=== PATIENT | female | born 1975 | race Caucasian/White ===

== ENCOUNTER 2020-12-11 17:03 | Inpatient (IN) ==
[2020-12-11 18:14] LABS: Basophils % 0.2 %; Hemoglobin 13.2 g/dL (11.5-15.4); Immature Granulocytes % 0.9 % (0-4); Lymphocytes # 1.3 K/mcL (0.6-4.6); Lymphocytes % 9.6 %; Mean Corpuscular Hemoglobin 28.4 pg (28.0-33.3); Mean Platelet Volume 10.2 fL (9.4-12.4); Monocytes # 0.5 K/mcL (0.0-1.3); Monocytes % 3.8 %; Neutrophils # 11.1 K/mcL (1.6-8.9); Platelet Count 202 K/mcL (140-400); Red Blood Count 4.65 M/mcL (3.82-4.97); Red Cell Distribution Width 13.9 % (11.5-14.5); Segmented Neutrophils % 85.5 %
[2020-12-11 18:34] LABS: Alanine Aminotransferase 46 Units/L (7-52); Albumin 3.7 g/dL (3.5-5.7); Albumin/Globulin Ratio 1.1 (1.1-2.2); Alkaline Phosphatase 133 Units/L (34-104); Aspartate Amino Transferase 32 Units/L (13-39); BUN/Creatinine Ratio 20 (6-26); Bilirubin,Indirect 0.4 mg/dL (0.0-1.0); Bilirubin,Total 0.4 mg/dL (0.3-1.0); Blood Urea Nitrogen 26 mg/dL (6-20); Calcium 8.5 mg/dL (8.6-10.3); Carbon Dioxide 20 mEq/L (23-29); Chloride 99 mEq/L (98-107); Globulin 3.4 g/dL (2.4-3.5); Glucose 146 mg/dL (70-105); Magnesium 1.8 mg/dL (1.6-2.6); Osmolality,Calculated 283 (280-300); Potassium 3.9 mEq/L (3.5-5.1); Sodium 133 mEq/L (136-145); Total Protein 7.1 g/dL (6.4-8.9); Troponin I < 0.03 ng/mL (< 0.04); eGFR For African Americans 55 (> 60); eGFR For Non-African Americans 45 (> 60)
[2020-12-11] MEDS: 0.9 % Sodium Chloride 1,000 ML IVC SCH ×2 (18:38→20:30)
[2020-12-11] MEDS ORDERED: Ondansetron 4 MG/2 ML VIAL IVP PRN (21:37)
[2020-12-11] MEDS ORDERED: Naloxone 0.4 MG/ML INJ IVP PRN (21:37)
[2020-12-11] MEDS ORDERED: Acetaminophen 325 MG TABLET PO PRN (21:37)
[2020-12-11] MEDS ORDERED: Melatonin 3 MG TABLET PO PRN (21:37)
[2020-12-11] MEDS: Dexamethasone Sodium Phos/PF 10 MG/ML VIAL IVP SCH (21:45)
[2020-12-12] MEDS ORDERED: *HR* Enoxaparin 40 MG/0.4 ML SYRINGE SQ SCH ×2 (06:00→18:00)
[2020-12-12 07:49] LABS: Basophils % 0.2 %; Hematocrit 35.7 % (35.3-44.9); Hemoglobin 11.7 g/dL (11.5-15.4); Immature Granulocytes % 1.5 % (0-4); Lymphocytes # 1.4 K/mcL (0.6-4.6); Lymphocytes % 17.6 %; Mean Corpuscular HGB Conc 32.8 g/dL (31.6-35.5); Mean Corpuscular Hemoglobin 28.6 pg (28.0-33.3); Mean Corpuscular Volume 87.3 fL (83.0-100.0); Monocytes # 0.4 K/mcL (0.0-1.3); Monocytes % 4.5 %; Neutrophils # 6.2 K/mcL (1.6-8.9); Platelet Count 158 K/mcL (140-400); Red Blood Count 4.09 M/mcL (3.82-4.97); Red Cell Distribution Width 14.2 % (11.5-14.5); Segmented Neutrophils % 76.2 %; White Blood Count 8.2 K/mcL (4.3-11.1)
[2020-12-12 07:53] LABS: INR 1.2; Prothrombin Time 14.3 Seconds (9.4-12.1)
[2020-12-12 08:28] LABS: Alanine Aminotransferase 38 Units/L (7-52); Albumin 3.3 g/dL (3.5-5.7); Albumin/Globulin Ratio 1.1 (1.1-2.2); Alkaline Phosphatase 113 Units/L (34-104); Aspartate Amino Transferase 31 Units/L (13-39); BUN/Creatinine Ratio 21 (6-26); Bilirubin,Total 0.3 mg/dL (0.3-1.0); Blood Urea Nitrogen 23 mg/dL (6-20); Calcium 7.7 mg/dL (8.6-10.3); Carbon Dioxide 21 mEq/L (23-29); Chloride 105 mEq/L (98-107); Glucose 112 mg/dL (70-105); Lactate Dehydrogenase 259 Units/L (140-271); Osmolality,Calculated 282 (280-300); Phosphorous 2.7 mg/dL (2.7-4.5); Potassium 3.9 mEq/L (3.5-5.1); Sodium 134 mEq/L (136-145); Total Protein 6.3 g/dL (6.4-8.9); eGFR For African Americans > 60 (> 60); eGFR For Non-African Americans 56 (> 60)
[2020-12-12 08:35] LABS: Ferritin 154 ng/mL (10-120)
[2020-12-12] MEDS: Dexamethasone Sodium Phos/PF 10 MG/ML VIAL IVP SCH (08:39)
[2020-12-12 10:19] LABS: C-Reactive Protein 134 mg/L (Less than 10)
[2020-12-12] MEDS: Budesonide/Formoterol 160/4.5 1 PUFF INH IH SCH (19:52)
[2020-12-12] MEDS: *HR* Heparin 5,000 UNIT/ML VIAL SQ SCH (21:27)
[2020-12-12] MEDS: *HR* HYDROcodone/Acet 5/325 mg TABLET PO PRN (21:28)
[2020-12-12] MEDS: Pregabalin 75 MG CAPSULE PO SCH (21:28)
[2020-12-12] MEDS: Famotidine 20 MG TABLET PO SCH (21:28)
[2020-12-12] MEDS: tiZANidine 4 MG TABLET PO SCH (21:29)
[2020-12-12] MEDS: CEVIMELINE HCL 30 MG PO SCH (21:30)
[2020-12-13] MEDS: *HR* Heparin 5,000 UNIT/ML VIAL SQ SCH ×3 (05:43→20:36)
[2020-12-13 08:40] LABS: Basophils % 0.3 %; Hematocrit 38.6 % (35.3-44.9); Hemoglobin 12.7 g/dL (11.5-15.4); Immature Granulocytes % 3.1 % (0-4); Lymphocytes # 1.9 K/mcL (0.6-4.6); Lymphocytes % 20.2 %; Mean Corpuscular HGB Conc 32.9 g/dL (31.6-35.5); Mean Corpuscular Hemoglobin 28.4 pg (28.0-33.3); Mean Corpuscular Volume 86.4 fL (83.0-100.0); Mean Platelet Volume 9.9 fL (9.4-12.4); Monocytes # 0.8 K/mcL (0.0-1.3); Monocytes % 7.8 %; Neutrophils # 6.6 K/mcL (1.6-8.9); Platelet Count 184 K/mcL (140-400); Red Blood Count 4.47 M/mcL (3.82-4.97); Red Cell Distribution Width 13.9 % (11.5-14.5); Segmented Neutrophils % 68.6 %; White Blood Count 9.6 K/mcL (4.3-11.1)
[2020-12-13 08:57] LABS: BUN/Creatinine Ratio 25 (6-26); Blood Urea Nitrogen 23 mg/dL (6-20); Calcium 8.5 mg/dL (8.6-10.3); Carbon Dioxide 21 mEq/L (23-29); Chloride 105 mEq/L (98-107); Glucose 138 mg/dL (70-105); Osmolality,Calculated 280 (280-300); Potassium 4.5 mEq/L (3.5-5.1); Sodium 132 mEq/L (136-145); eGFR For African Americans > 60 (> 60); eGFR For Non-African Americans > 60 (> 60)
[2020-12-13] MEDS: CEVIMELINE HCL 30 MG PO SCH ×2 (09:00→20:37)
[2020-12-13] MEDS: Dexamethasone Sodium Phos/PF 10 MG/ML VIAL IVP SCH (10:34)
[2020-12-13] MEDS: Cholecalciferol (D-3) 1,000 UNIT (25MCG) TABLET PO SCH (10:35)
[2020-12-13] MEDS: Metoprolol XL (24 HR) Succ 50 MG TAB.ER.24H PO SCH (10:36)
[2020-12-13] MEDS: Furosemide 20 MG TABLET PO SCH (10:36)
[2020-12-13] MEDS: Budesonide/Formoterol 160/4.5 1 PUFF INH IH SCH ×2 (10:44→19:40)
[2020-12-13] MEDS: Pregabalin 75 MG CAPSULE PO SCH ×2 (11:26→20:36)
[2020-12-13] MEDS: tiZANidine 4 MG TABLET PO SCH (20:36)
[2020-12-13] MEDS: Famotidine 20 MG TABLET PO SCH (20:37)
[2020-12-14] MEDS: *HR* Heparin 5,000 UNIT/ML VIAL SQ SCH ×3 (05:31→21:19)
[2020-12-14] MEDS: Budesonide/Formoterol 160/4.5 1 PUFF INH IH SCH ×2 (07:21→22:15)
[2020-12-14] MEDS: Dexamethasone Sodium Phos/PF 10 MG/ML VIAL IVP SCH ×2 (09:06→14:49)
[2020-12-14] MEDS: Furosemide 20 MG TABLET PO SCH (09:07)
[2020-12-14] MEDS: Pregabalin 75 MG CAPSULE PO SCH ×2 (09:07→21:18)
[2020-12-14] MEDS: Cholecalciferol (D-3) 1,000 UNIT (25MCG) TABLET PO SCH (09:07)
[2020-12-14] MEDS: Metoprolol XL (24 HR) Succ 50 MG TAB.ER.24H PO SCH (09:07)
[2020-12-14 12:01] LABS: Basophils % 0.1 %; Hematocrit 37.4 % (35.3-44.9); Hemoglobin 12.3 g/dL (11.5-15.4); Lymphocytes # 1.5 K/mcL (0.6-4.6); Lymphocytes % 9.5 %; Mean Corpuscular HGB Conc 32.9 g/dL (31.6-35.5); Mean Corpuscular Hemoglobin 28.1 pg (28.0-33.3); Mean Corpuscular Volume 85.6 fL (83.0-100.0); Mean Platelet Volume 10.1 fL (9.4-12.4); Monocytes # 0.8 K/mcL (0.0-1.3); Monocytes % 4.9 %; Neutrophils # 13.5 K/mcL (1.6-8.9); Platelet Count 212 K/mcL (140-400); Red Blood Count 4.37 M/mcL (3.82-4.97); Red Cell Distribution Width 14.1 % (11.5-14.5); Segmented Neutrophils % 84.5 %
[2020-12-14] MEDS: CEVIMELINE HCL 30 MG PO SCH ×2 (12:10→21:19)
[2020-12-14 12:20] LABS: Calcium 8.8 mg/dL (8.6-10.3); Potassium 4.8 mEq/L (3.5-5.1)
[2020-12-14] MEDS: Ipratropium 1 PUFF INHALER IH SCH ×3 (16:10→22:15)
[2020-12-14] MEDS: tiZANidine 4 MG TABLET PO SCH (21:19)
[2020-12-14] MEDS: Famotidine 20 MG TABLET PO SCH (21:19)
[2020-12-15 03:26] LABS: Basophils % 0.1 %; Hematocrit 35.4 % (35.3-44.9); Hemoglobin 11.6 g/dL (11.5-15.4); Immature Granulocytes % 1.7 % (0-4); Lymphocytes # 2.2 K/mcL (0.6-4.6); Lymphocytes % 14.5 %; Mean Corpuscular HGB Conc 32.8 g/dL (31.6-35.5); Mean Corpuscular Hemoglobin 28.2 pg (28.0-33.3); Mean Corpuscular Volume 86.1 fL (83.0-100.0); Mean Platelet Volume 10.3 fL (9.4-12.4); Monocytes # 0.8 K/mcL (0.0-1.3); Monocytes % 5.1 %; Neutrophils # 12.1 K/mcL (1.6-8.9); Platelet Count 247 K/mcL (140-400); Red Blood Count 4.11 M/mcL (3.82-4.97); Red Cell Distribution Width 14.1 % (11.5-14.5); Segmented Neutrophils % 78.6 %; White Blood Count 15.5 K/mcL (4.3-11.1)
[2020-12-15 03:44] LABS: BUN/Creatinine Ratio 32 (6-26); Blood Urea Nitrogen 36 mg/dL (6-20); Calcium 8.6 mg/dL (8.6-10.3); Carbon Dioxide 20 mEq/L (23-29); Chloride 102 mEq/L (98-107); Glucose 178 mg/dL (70-105); Osmolality,Calculated 287 (280-300); Potassium 4.8 mEq/L (3.5-5.1); Sodium 132 mEq/L (136-145); eGFR For African Americans > 60 (> 60); eGFR For Non-African Americans 52 (> 60)
[2020-12-15] MEDS: Ipratropium 1 PUFF INHALER IH SCH ×4 (03:58→22:41)
[2020-12-15] MEDS: *HR* Heparin 5,000 UNIT/ML VIAL SQ SCH ×3 (05:39→20:35)
[2020-12-15] MEDS: CEVIMELINE HCL 30 MG PO SCH (09:10)
[2020-12-15] MEDS: Cholecalciferol (D-3) 1,000 UNIT (25MCG) TABLET PO SCH (09:51)
[2020-12-15] MEDS: Metoprolol XL (24 HR) Succ 50 MG TAB.ER.24H PO SCH (09:51)
[2020-12-15] MEDS: Pregabalin 75 MG CAPSULE PO SCH ×2 (09:51→20:36)
[2020-12-15] MEDS: Dexamethasone Sodium Phos/PF 10 MG/ML VIAL IVP SCH (09:52)
[2020-12-15] MEDS: Furosemide 20 MG TABLET PO SCH (09:52)
[2020-12-15] MEDS: Budesonide/Formoterol 160/4.5 1 PUFF INH IH SCH ×2 (10:56→22:41)
[2020-12-15] MEDS ORDERED: Dexamethasone Sodium Phos/PF 10 MG/ML VIAL IVP ONE (15:00)
[2020-12-15] MEDS: Azithromycin 500 MG in 0.9 % Sodium Chloride 250 ML IVPB SCH (18:42)
[2020-12-15] MEDS: cefTRIAXone 2,000 MG in Water for inj. (sterile) 20 ML IVP SCH (18:42)
[2020-12-15] MEDS: tiZANidine 4 MG TABLET PO SCH (20:36)
[2020-12-15] MEDS: Famotidine 20 MG TABLET PO SCH (20:37)
[2020-12-16 01:54] LABS: Basophils # 0.1 K/mcL (0.0-0.2); Basophils % 0.7 %; Hematocrit 46.6 % (35.3-44.9); Immature Granulocytes % 2.7 % (0-4); Lymphocytes # 2.6 K/mcL (0.6-4.6); Lymphocytes % 17.4 %; Mean Corpuscular HGB Conc 32.6 g/dL (31.6-35.5); Mean Corpuscular Hemoglobin 28.8 pg (28.0-33.3); Mean Corpuscular Volume 88.4 fL (83.0-100.0); Mean Platelet Volume 10.8 fL (9.4-12.4); Monocytes # 0.9 K/mcL (0.0-1.3); Monocytes % 5.8 %; Platelet Count 179 K/mcL (140-400); Red Blood Count 5.27 M/mcL (3.82-4.97); Segmented Neutrophils % 73.4 %
[2020-12-16 01:56] LABS: Hemoglobin 15.2 g/dL (11.5-15.4)
[2020-12-16 02:11] LABS: Calcium 8.8 mg/dL (8.6-10.3); Potassium 5.4 mEq/L (3.5-5.1)
[2020-12-16] MEDS: Ipratropium 1 PUFF INHALER IH SCH ×4 (04:01→22:04)
[2020-12-16] MEDS: Furosemide 20 MG/2 ML VIAL IVP SCH (08:06)
[2020-12-16] MEDS: *HR* Heparin 5,000 UNIT/ML VIAL SQ SCH ×3 (08:06→19:56)
[2020-12-16] MEDS: Pregabalin 75 MG CAPSULE PO SCH ×2 (08:07→19:55)
[2020-12-16] MEDS: Metoprolol XL (24 HR) Succ 50 MG TAB.ER.24H PO SCH (08:07)
[2020-12-16] MEDS: Cholecalciferol (D-3) 1,000 UNIT (25MCG) TABLET PO SCH (08:07)
[2020-12-16] MEDS: Dexamethasone Sodium Phos/PF 10 MG/ML VIAL IVP SCH (08:07)
[2020-12-16] MEDS: Budesonide/Formoterol 160/4.5 1 PUFF INH IH SCH ×2 (10:20→22:04)
[2020-12-16] MEDS: cefTRIAXone 2,000 MG in Water for inj. (sterile) 20 ML IVP SCH (14:39)
[2020-12-16] MEDS: Azithromycin 500 MG in 0.9 % Sodium Chloride 250 ML IVPB SCH (14:39)
[2020-12-16] MEDS: tiZANidine 4 MG TABLET PO SCH (19:55)
[2020-12-16] MEDS: Famotidine 20 MG TABLET PO SCH (19:56)
[2020-12-16 21:37] LABS: Bacteria,Urine Few per hpf (None-Few); Bilirubin,Urine Negative (Negative); Blood,Urine Large (Negative); Clarity,Urine Clear (Clear); Color,Urine Light-Yellow (Yellow); Glucose,Urine (UA) Normal (Normal); Granular Casts,Urine Few per lpf (None Seen); Ketones,Urine Negative (Negative); Leukocyte Esterase,Urine Negative (Negative); Mucus,Urine Few per lpf (None-Few); Nitrite,Urine Negative (Negative); Protein,Urine Trace mg/dL (Neg-Trace); RBC,Urine TNTC per hpf (0-3); Specific Gravity,Urine 1.019 (1.010-1.025); Squamous Epithelial Cell,Urine Few per hpf (None-Few); Urobilinogen,Urine Normal (Normal); WBC,Urine 0-3 per hpf (0-3)
[2020-12-16 21:40] LABS: Protein/Creatinine Ratio,Urine 0.39 mg/mg (0.00-0.20); Sodium, Urine 85.5 mEq/L
[2020-12-17 03:40] LABS: BUN/Creatinine Ratio 48 (6-26); Blood Urea Nitrogen 54 mg/dL (6-20); Calcium 9.2 mg/dL (8.6-10.3); Carbon Dioxide 17 mEq/L (23-29); Chloride 104 mEq/L (98-107); Glucose 185 mg/dL (70-105); Osmolality,Calculated 296 (280-300); Potassium 6.1 mEq/L (3.5-5.1); Sodium 133 mEq/L (136-145); eGFR For African Americans > 60 (> 60); eGFR For Non-African Americans 52 (> 60)
[2020-12-17] MEDS: Ipratropium 1 PUFF INHALER IH SCH ×4 (04:22→22:06)
[2020-12-17] MEDS: *HR* Heparin 5,000 UNIT/ML VIAL SQ SCH ×3 (05:00→20:47)
[2020-12-17 07:38] LABS: Hemoglobin 13.3 g/dL (11.5-15.4)
[2020-12-17 07:40] LABS: Hematocrit 39.5 % (35.3-44.9); Mean Corpuscular HGB Conc 33.7 g/dL (31.6-35.5); Mean Corpuscular Hemoglobin 28.9 pg (28.0-33.3); Mean Corpuscular Volume 85.9 fL (83.0-100.0); Mean Platelet Volume 10.5 fL (9.4-12.4); Platelet Count 212 K/mcL (140-400); Red Cell Distribution Width 13.7 % (11.5-14.5); White Blood Count 27.9 K/mcL (4.3-11.1)
[2020-12-17 08:28] LABS: Monocytes # 3.1 K/mcL (0.0-1.3)
[2020-12-17 08:29] LABS: Platelet Estimate Normal (Normal)
[2020-12-17] MEDS: Budesonide/Formoterol 160/4.5 1 PUFF INH IH SCH ×2 (10:15→22:10)
[2020-12-17] MEDS: Furosemide 20 MG/2 ML VIAL IVP SCH (10:20)
[2020-12-17] MEDS: Dexamethasone Sodium Phos/PF 10 MG/ML VIAL IVP SCH (10:20)
[2020-12-17] MEDS: Metoprolol XL (24 HR) Succ 50 MG TAB.ER.24H PO SCH (10:21)
[2020-12-17] MEDS: Cholecalciferol (D-3) 1,000 UNIT (25MCG) TABLET PO SCH (10:21)
[2020-12-17] MEDS: Pregabalin 75 MG CAPSULE PO SCH ×2 (10:21→20:46)
[2020-12-17] MEDS: Azithromycin 500 MG in 0.9 % Sodium Chloride 250 ML IVPB SCH (14:25)
[2020-12-17] MEDS: cefTRIAXone 2,000 MG in Water for inj. (sterile) 20 ML IVP SCH (14:26)
[2020-12-17] MEDS: Famotidine 20 MG TABLET PO SCH (20:46)
[2020-12-17] MEDS: tiZANidine 4 MG TABLET PO SCH (20:47)
[2020-12-18] MEDS: Ipratropium 1 PUFF INHALER IH SCH ×4 (04:23→22:00)
[2020-12-18] MEDS: Metoprolol XL (24 HR) Succ 50 MG TAB.ER.24H PO SCH (09:51)
[2020-12-18] MEDS: Cholecalciferol (D-3) 1,000 UNIT (25MCG) TABLET PO SCH (09:51)
[2020-12-18] MEDS: Pregabalin 75 MG CAPSULE PO SCH ×2 (09:51→21:31)
[2020-12-18] MEDS: Dexamethasone Sodium Phos/PF 10 MG/ML VIAL IVP SCH (09:51)
[2020-12-18] MEDS: Furosemide 20 MG/2 ML VIAL IVP SCH (09:52)
[2020-12-18] MEDS: Budesonide/Formoterol 160/4.5 1 PUFF INH IH SCH ×2 (09:54→22:03)
[2020-12-18] MEDS: *HR* Heparin 5,000 UNIT/ML VIAL SQ SCH ×2 (16:25→21:30)
[2020-12-18] MEDS: cefTRIAXone 2,000 MG in Water for inj. (sterile) 20 ML IVP SCH (16:27)
[2020-12-18] MEDS: Azithromycin 250 MG TABLET PO SCH (16:27)
[2020-12-18] MEDS: Famotidine 20 MG TABLET PO SCH (21:31)
[2020-12-18] MEDS: tiZANidine 4 MG TABLET PO SCH (21:31)
[2020-12-19] MEDS: Ipratropium 1 PUFF INHALER IH SCH ×4 (03:08→21:58)
[2020-12-19] MEDS: *HR* Heparin 5,000 UNIT/ML VIAL SQ SCH ×3 (05:21→21:46)
[2020-12-19 08:36] LABS: Basophils # 0.1 K/mcL (0.0-0.2); Basophils % 0.3 %; Hematocrit 42.4 % (35.3-44.9); Hemoglobin 14.4 g/dL (11.5-15.4); Immature Platelets 5.7 % (1.1-6.1); Lymphocytes # 3.1 K/mcL (0.6-4.6); Lymphocytes % 11.3 %; Mean Corpuscular Hemoglobin 28.1 pg (28.0-33.3); Mean Corpuscular Volume 82.8 fL (83.0-100.0); Mean Platelet Volume 10.3 fL (9.4-12.4); Monocytes # 1.5 K/mcL (0.0-1.3); Monocytes % 5.5 %; Neutrophils # 21.5 K/mcL (1.6-8.9); Platelet Count 280 K/mcL (140-400); Red Blood Count 5.12 M/mcL (3.82-4.97); Red Cell Distribution Width 13.3 % (11.5-14.5); Segmented Neutrophils % 78.9 %; White Blood Count 27.2 K/mcL (4.3-11.1)
[2020-12-19 08:43] LABS: BUN/Creatinine Ratio 48 (6-26); Blood Urea Nitrogen 54 mg/dL (6-20); Calcium 9.3 mg/dL (8.6-10.3); Carbon Dioxide 19 mEq/L (23-29); Chloride 101 mEq/L (98-107); Glucose 155 mg/dL (70-105); Osmolality,Calculated 290 (280-300); Sodium 131 mEq/L (136-145); eGFR For African Americans > 60 (> 60); eGFR For Non-African Americans 53 (> 60)
[2020-12-19] MEDS: Dexamethasone Sodium Phos/PF 10 MG/ML VIAL IVP SCH (09:05)
[2020-12-19] MEDS: Cholecalciferol (D-3) 1,000 UNIT (25MCG) TABLET PO SCH (09:05)
[2020-12-19] MEDS: Furosemide 20 MG/2 ML VIAL IVP SCH (09:05)
[2020-12-19] MEDS: Pregabalin 75 MG CAPSULE PO SCH ×2 (09:05→21:45)
[2020-12-19] MEDS: Metoprolol XL (24 HR) Succ 50 MG TAB.ER.24H PO SCH (09:05)
[2020-12-19 09:30] LABS: Large Platelets Present (Not Present); Platelet Estimate Normal (Normal)
[2020-12-19] MEDS: Budesonide/Formoterol 160/4.5 1 PUFF INH IH SCH ×2 (10:41→21:58)
[2020-12-19] MEDS: *HR* HYDROcodone/Acet 5/325 mg TABLET PO PRN ×2 (14:06→21:45)
[2020-12-19] MEDS: Azithromycin 250 MG TABLET PO SCH (15:47)
[2020-12-19] MEDS: cefTRIAXone 2,000 MG in Water for inj. (sterile) 20 ML IVP SCH (15:48)
[2020-12-19] MEDS: Famotidine 20 MG TABLET PO SCH (21:44)
[2020-12-19] MEDS: tiZANidine 4 MG TABLET PO SCH (22:00)
[2020-12-20] MEDS ORDERED: cefTRIAXone 2,000 MG in Water for inj. (sterile) 20 ML IVP ONE (01:00)
[2020-12-20] MEDS: Ipratropium 1 PUFF INHALER IH SCH ×3 (04:15→15:37)
[2020-12-20] MEDS: *HR* Heparin 5,000 UNIT/ML VIAL SQ SCH ×2 (05:34→09:17)
[2020-12-20 07:24] LABS: Basophils # 0.1 K/mcL (0.0-0.2); Basophils % 0.4 %; Hematocrit 40.9 % (35.3-44.9); Hemoglobin 13.9 g/dL (11.5-15.4); Immature Granulocytes % 3.6 % (0-4); Lymphocytes # 2.7 K/mcL (0.6-4.6); Lymphocytes % 12.1 %; Mean Corpuscular Hemoglobin 28.6 pg (28.0-33.3); Mean Corpuscular Volume 84.2 fL (83.0-100.0); Mean Platelet Volume 10.7 fL (9.4-12.4); Monocytes # 1.4 K/mcL (0.0-1.3); Monocytes % 6.2 %; Neutrophils # 17.1 K/mcL (1.6-8.9); Platelet Count 234 K/mcL (140-400); Red Blood Count 4.86 M/mcL (3.82-4.97); Red Cell Distribution Width 13.2 % (11.5-14.5); Segmented Neutrophils % 77.7 %
[2020-12-20] MEDS: Budesonide/Formoterol 160/4.5 1 PUFF INH IH SCH (07:45)
[2020-12-20] MEDS ORDERED: Dexamethasone Sodium Phos/PF 10 MG/ML VIAL IVP SCH (09:00)
[2020-12-20 09:25] VITALS: BP 147/88; PULSE 101; TEMP 98.4; O2SAT 91
[2020-12-20] MEDS: Cholecalciferol (D-3) 1,000 UNIT (25MCG) TABLET PO SCH (09:27)
[2020-12-20] MEDS: Metoprolol XL (24 HR) Succ 50 MG TAB.ER.24H PO SCH (09:28)
[2020-12-20] MEDS: Pregabalin 75 MG CAPSULE PO SCH (09:28)
[2020-12-20] MEDS: Furosemide 20 MG/2 ML VIAL IVP SCH (09:35)
[2020-12-20 10:34] LABS: BUN/Creatinine Ratio 49 (6-26); Blood Urea Nitrogen 52 mg/dL (6-20); Calcium 8.7 mg/dL (8.6-10.3); Carbon Dioxide 16 mEq/L (23-29); Chloride 101 mEq/L (98-107); Glucose 207 mg/dL (70-105); Osmolality,Calculated 290 (280-300); Potassium 4.6 mEq/L (3.5-5.1); Sodium 130 mEq/L (136-145); eGFR For African Americans > 60 (> 60); eGFR For Non-African Americans 56 (> 60)
== END 2020-12-20 16:33 | disposition home or self-care (01) | DRG 177 ==
LOC: 2NENU 17:03 → EMEROOARM 17:03 → SUATTDRO 21:51 → 2NENU 22:55
PROVIDERS: ADMIT Internal Medicine; ATTEND Internal Medicine

== ENCOUNTER 2020-12-26 21:24 | Observation (INO) ==
[2020-12-26] MEDS ORDERED: 0.9 % Sodium Chloride 1,000 ML IVC ONE (21:33)
[2020-12-26 22:14] LABS: Prothrombin Time 11.6 Seconds (9.4-12.1)
[2020-12-26 22:15] LABS: Basophils % 0.1 %; Eosinophils # 0.1 K/mcL (0.0-0.6); Eosinophils % 0.2 %; Hematocrit 38.8 % (35.3-44.9); Hemoglobin 12.7 g/dL (11.5-15.4); Immature Granulocytes % 1.1 % (0-4); Lymphocytes % 17.5 %; Mean Corpuscular HGB Conc 32.7 g/dL (31.6-35.5); Mean Corpuscular Hemoglobin 28.5 pg (28.0-33.3); Mean Corpuscular Volume 87.2 fL (83.0-100.0); Mean Platelet Volume 10.4 fL (9.4-12.4); Monocytes # 1.9 K/mcL (0.0-1.3); Monocytes % 8.5 %; Neutrophils # 16.6 K/mcL (1.6-8.9); Platelet Count 266 K/mcL (140-400); Red Blood Count 4.45 M/mcL (3.82-4.97); Red Cell Distribution Width 13.8 % (11.5-14.5); Segmented Neutrophils % 72.6 %; White Blood Count 22.8 K/mcL (4.3-11.1)
[2020-12-26 22:16] LABS: Activated Partial Thrombo Time 24.6 Seconds (26.0-36.0)
[2020-12-26 22:27] LABS: Alanine Aminotransferase 25 Units/L (7-52); Albumin 3.2 g/dL (3.5-5.7); Albumin/Globulin Ratio 1.2 (1.1-2.2); Alkaline Phosphatase 80 Units/L (34-104); Aspartate Amino Transferase 11 Units/L (13-39); BUN/Creatinine Ratio 21 (6-26); Bilirubin,Indirect 0.5 mg/dL (0.0-1.0); Bilirubin,Total 0.5 mg/dL (0.3-1.0); Blood Urea Nitrogen 54 mg/dL (6-20); Calcium 8.9 mg/dL (8.6-10.3); Carbon Dioxide 17 mEq/L (23-29); Chloride 98 mEq/L (98-107); Globulin 2.7 g/dL (2.4-3.5); Glucose 174 mg/dL (70-105); Magnesium 1.7 mg/dL (1.6-2.6); Osmolality,Calculated 289 (280-300); Phosphorous 6.1 mg/dL (2.7-4.5); Potassium 4.5 mEq/L (3.5-5.1); Sodium 130 mEq/L (136-145); Total Protein 5.9 g/dL (6.4-8.9); eGFR For African Americans 24 (> 60); eGFR For Non-African Americans 20 (> 60)
[2020-12-26] MEDS ORDERED: Piperacillin/Tazobactam 3.375 GM in 0.9 % Sodium Chloride Mini Bag 100 ML IVPB ONE (22:45)
[2020-12-26] MEDS ORDERED: Azithromycin 500 MG in 0.9 % Sodium Chloride 250 ML IVPB ONE (22:48)
[2020-12-26 22:55] LABS: Troponin I < 0.03 ng/mL (< 0.04)
[2020-12-26] MEDS ORDERED: Piperacillin/Tazobactam 3.375 GM in Water for inj. (sterile) 20 ML IVP ONE (23:00)
[2020-12-26] MEDS ORDERED: 0.9 % Sodium Chloride 500 ML ONE (23:21)
[2020-12-26] MEDS ORDERED: 0.9 % Sodium Chloride 500 ML IVC PRN (23:28)
[2020-12-27 00:50] LABS: Bacteria,Urine Few per hpf (None-Few); Bilirubin,Urine Negative (Negative); Blood,Urine Small (Negative); Clarity,Urine Turbid (Clear); Color,Urine Yellow (Yellow); Glucose,Urine (UA) Normal (Normal); Hyaline Casts,Urine Moderate per lpf (None Seen); Ketones,Urine Negative (Negative); Leukocyte Esterase,Urine Small (Negative); Mucus,Urine Few per lpf (None-Few); Nitrite,Urine Negative (Negative); PH,Urine 5.5 pH Units (5.0-8.0); Protein,Urine 30 mg/dL (Neg-Trace); Specific Gravity,Urine 1.016 (1.010-1.025); Squamous Epithelial Cell,Urine Moderate per hpf (None-Few); Transitional Epi Cells,Urine Few per hpf (None-Few); Urobilinogen,Urine Normal (Normal)
[2020-12-27] MEDS ORDERED: 0.9 % Sodium Chloride 1,000 ML IVC ONE ×2 (01:57→06:03)
[2020-12-27] MEDS ORDERED: Naloxone 0.4 MG/ML INJ IVP PRN ×2 (02:50→07:46)
[2020-12-27] MEDS ORDERED: Ondansetron 4 MG/2 ML VIAL IVP PRN ×2 (02:50→07:46)
[2020-12-27] MEDS ORDERED: Melatonin 3 MG TABLET PO PRN ×2 (02:50→07:46)
[2020-12-27 04:23] LABS: Basophils % 0.1 %; Eosinophils % 0.2 %; Hematocrit 32.8 % (35.3-44.9); Immature Granulocytes % 0.7 % (0-4); Lymphocytes # 2.7 K/mcL (0.6-4.6); Lymphocytes % 16.1 %; Mean Corpuscular HGB Conc 33.5 g/dL (31.6-35.5); Mean Corpuscular Hemoglobin 29.3 pg (28.0-33.3); Mean Corpuscular Volume 87.2 fL (83.0-100.0); Mean Platelet Volume 10.4 fL (9.4-12.4); Monocytes # 1.4 K/mcL (0.0-1.3); Monocytes % 8.6 %; Neutrophils # 12.3 K/mcL (1.6-8.9); Platelet Count 171 K/mcL (140-400); Red Blood Count 3.76 M/mcL (3.82-4.97); Red Cell Distribution Width 14.1 % (11.5-14.5); Segmented Neutrophils % 74.3 %; White Blood Count 16.6 K/mcL (4.3-11.1)
[2020-12-27 05:05] LABS: Albumin 2.9 g/dL (3.5-5.7); Albumin/Globulin Ratio 1.2 (1.1-2.2); Bilirubin,Total 0.4 mg/dL (0.3-1.0); Calcium 7.8 mg/dL (8.6-10.3); Globulin 2.4 g/dL (2.4-3.5); Magnesium 1.7 mg/dL (1.6-2.6); Phosphorous 5.4 mg/dL (2.7-4.5); Total Protein 5.3 g/dL (6.4-8.9); Troponin I 0.04 ng/mL (< 0.04)
[2020-12-27] MEDS ORDERED: Piperacillin/Tazobactam 3.375 GM in 0.9 % Sodium Chloride Mini Bag 100 ML IVPB ONE (07:46)
[2020-12-27] MEDS ORDERED: 0.9 % Sodium Chloride 500 ML IVC PRN (07:46)
[2020-12-27] MEDS ORDERED: Ringers Solution, Lactated 1,000 ML IVC SCH (14:00)
[2020-12-27] MEDS ORDERED: levoFLOXacin 750 MG TABLET PO SCH (14:30)
[2020-12-27] MEDS: *HR* Heparin 5,000 UNIT/ML VIAL SQ SCH (18:21)
[2020-12-27] MEDS: Budesonide/Formoterol 160/4.5 1 PUFF INH IH SCH (20:41)
[2020-12-27] MEDS: Pregabalin 75 MG CAPSULE PO SCH (20:41)
[2020-12-27] MEDS: tiZANidine 4 MG TABLET PO SCH (20:41)
[2020-12-27] MEDS: CEVIMELINE HCL 30 MG PO SCH (20:42)
[2020-12-28] MEDS: *HR* Heparin 5,000 UNIT/ML VIAL SQ SCH ×2 (06:41→17:12)
[2020-12-28] MEDS ORDERED: Tiotropium 10 INH DOSE IH ONE (07:34)
[2020-12-28] MEDS: Tiotropium 10 INH DOSE IH SCH (07:37)
[2020-12-28] MEDS: Budesonide/Formoterol 160/4.5 1 PUFF INH IH SCH ×2 (07:37→21:10)
[2020-12-28 09:55] LABS: Basophils % 0.1 %; Eosinophils # 0.3 K/mcL (0.0-0.6); Eosinophils % 2.8 %; Hematocrit 33.2 % (35.3-44.9); Immature Granulocytes % 0.6 % (0-4); Lymphocytes # 2.2 K/mcL (0.6-4.6); Lymphocytes % 22.2 %; Mean Corpuscular HGB Conc 33.1 g/dL (31.6-35.5); Mean Corpuscular Hemoglobin 29.3 pg (28.0-33.3); Mean Corpuscular Volume 88.3 fL (83.0-100.0); Mean Platelet Volume 10.5 fL (9.4-12.4); Monocytes # 0.8 K/mcL (0.0-1.3); Monocytes % 7.8 %; Neutrophils # 6.7 K/mcL (1.6-8.9); Platelet Count 158 K/mcL (140-400); Red Blood Count 3.76 M/mcL (3.82-4.97); Red Cell Distribution Width 14.2 % (11.5-14.5); Segmented Neutrophils % 66.5 %
[2020-12-28 10:13] LABS: BUN/Creatinine Ratio 33 (6-26); Blood Urea Nitrogen 32 mg/dL (6-20); Calcium 8.3 mg/dL (8.6-10.3); Carbon Dioxide 20 mEq/L (23-29); Chloride 104 mEq/L (98-107); Glucose 137 mg/dL (70-105); Magnesium 1.7 mg/dL (1.6-2.6); Osmolality,Calculated 285 (280-300); Phosphorous 2.2 mg/dL (2.7-4.5); Potassium 4.2 mEq/L (3.5-5.1); Sodium 133 mEq/L (136-145); eGFR For African Americans > 60 (> 60); eGFR For Non-African Americans > 60 (> 60)
[2020-12-28] MEDS: Pregabalin 75 MG CAPSULE PO SCH ×2 (11:47→20:50)
[2020-12-28] MEDS: Multivit/Ca/Min/Fe/FA 1 TAB TABLET PO SCH (11:47)
[2020-12-28] MEDS: Cholecalciferol (D-3) 1,000 UNIT (25MCG) TABLET PO SCH (11:47)
[2020-12-28] MEDS: Metoprolol XL (24 HR) Succ 50 MG TAB.ER.24H PO SCH (11:48)
[2020-12-28] MEDS: CEVIMELINE HCL 30 MG PO SCH ×2 (11:50→20:47)
[2020-12-28] MEDS: levoFLOXacin 750 MG TABLET PO SCH (11:58)
[2020-12-28] MEDS: *HR* HYDROcodone/Acet 5/325 mg TABLET PO PRN (17:11)
[2020-12-28] MEDS: tiZANidine 4 MG TABLET PO SCH (20:50)
[2020-12-28 20:58] VITALS: TEMP 98.4
[2020-12-29 03:10] LABS: BUN/Creatinine Ratio 28 (6-26); Blood Urea Nitrogen 23 mg/dL (6-20); Calcium 8.4 mg/dL (8.6-10.3); Carbon Dioxide 22 mEq/L (23-29); Chloride 106 mEq/L (98-107); Glucose 149 mg/dL (70-105); Magnesium 1.6 mg/dL (1.6-2.6); Osmolality,Calculated 286 (280-300); Phosphorous 3.1 mg/dL (2.7-4.5); Potassium 4.3 mEq/L (3.5-5.1); Sodium 135 mEq/L (136-145); eGFR For African Americans > 60 (> 60); eGFR For Non-African Americans > 60 (> 60)
[2020-12-29] MEDS: *HR* Heparin 5,000 UNIT/ML VIAL SQ SCH (05:17)
[2020-12-29] MEDS: Metoprolol XL (24 HR) Succ 50 MG TAB.ER.24H PO SCH (07:56)
[2020-12-29] MEDS: levoFLOXacin 750 MG TABLET PO SCH (07:56)
[2020-12-29] MEDS: Cholecalciferol (D-3) 1,000 UNIT (25MCG) TABLET PO SCH (07:57)
[2020-12-29] MEDS: *HR* HYDROcodone/Acet 5/325 mg TABLET PO PRN (07:57)
[2020-12-29] MEDS: Pregabalin 75 MG CAPSULE PO SCH (07:57)
[2020-12-29] MEDS: Multivit/Ca/Min/Fe/FA 1 TAB TABLET PO SCH (07:57)
[2020-12-29] MEDS: CEVIMELINE HCL 30 MG PO SCH (07:57)
[2020-12-29 08:01] VITALS: BP 101/61; PULSE 89
[2020-12-29] MEDS ORDERED: Furosemide 20 MG TABLET PO SCH (09:00)
[2020-12-29] MEDS: Budesonide/Formoterol 160/4.5 1 PUFF INH IH SCH (09:35)
[2020-12-29] MEDS: Tiotropium 10 INH DOSE IH SCH (09:36)
[2020-12-29 09:39] VITALS: O2SAT 96
== END 2020-12-29 15:29 | disposition home or self-care (01) ==
LOC: EMEROOARM 21:24 → ICNU 21:24 → SUATTDRO 12-27 01:41 → ICNU 12-27 02:30 → 2NENU 12-27 07:04
PROVIDERS: ADMIT Internal Medicine; ATTEND Internal Medicine